=== PATIENT | female | born 1970 | race Caucasian/White ===

== ENCOUNTER 2017-03-18 21:20 | Emergency (ER) | payer OTHER ==
[2017-03-18 21:21] VITALS: BMI 29.2
[2017-03-18] MEDS ORDERED: Alum-Mag Hydrox-Simethicone Susp (30 mL) PO STA (22:21)
[2017-03-18] MEDS ORDERED: Aluminum Hydroxide/Magnesium Hydroxide Susp (30 mL) ONE (22:57)
--- NOTE | 2017-03-18 23:26 | C.PDOC ---
Time Seen by Provider: 03/18/17 22:13 Chief Complaint (Nursing): Abdominal Pain History Per: Patient Onset/Duration Of Symptoms: Hrs Current Symptoms Are (Timing): Still Present Severity: Mild Location Of Pain/Discomfort: Epigastric Radiation Of Pain To:: None Quality Of Discomfort: Unable To Describe, "Pain" Associated Symptoms: Nausea Alleviating Factors: None Additional History Per: Prior Records Past Medical History Reviewed: Historical Data, Nursing Documentation, Vital Signs Vital Signs: Last Vital Signs Temp 98.1 F 03/18/17 21:46 Pulse 71 03/18/17 21:46 Resp 20 03/18/17 21:46 BP 171/97 H 03/18/17 21:46 Pulse Ox 100 03/18/17 21:46 - Medical History PMH: Gastritis, HTN Surgical History: Family History: States: Unknown Family Hx - Social History Hx Tobacco Use: No Hx Alcohol Use: No Hx Substance Use: No - Immunization History Hx Tetanus Toxoid Vaccination: No Hx Influenza Vaccination: No Hx Pneumococcal Vaccination: No Review Of Systems Except As Marked, All Systems Reviewed And Found Negative. Constitutional: Negative for: Fever, Weakness Cardiovascular: Negative for: Chest Pain Respiratory: Negative for: Shortness of Breath Gastrointestinal: Negative for: Vomiting, Diarrhea, Melena, Hematochezia, Hematemesis Genitourinary: Negative for: Dysuria Musculoskeletal: Negative for: Neck Pain, Back Pain, Leg Pain Skin: Negative for: Rash Neurological: Negative for: Weakness, Numbness, Seizures, Altered Mental Status Physical Exam - Physical Exam Appears: Non-toxic, No Acute Distress Skin: Normal Color, Warm, Dry, No Rash Head: Atraumatic, Normacephalic Eye(s): bilateral: Normal Inspection, PERRL, EOMI Neck: Normal ROM, Supple Cardiovascular: Rhythm Regular Respiratory: Normal Breath Sounds, No Accessory Muscle Use Gastrointestinal/Abdominal: Soft, No Tenderness Back: No CVA Tenderness Extremity: Normal ROM, No Pedal Edema, No Calf Tenderness Neurological/Psych: Oriented x3, Normal Motor, Normal Sensation ED Course And Treatment O2 Sat by Pulse Oximetry: 100 Pulse Ox Interpretation: Normal Progress Note: Pt states she ran out of her BP medication. Abdominal pain resolved. Reassessment Condition: Improved Progress - Interventions Interventions:: Observation - Medications Administered Oral: Antacid, Antiemetic, H-2 edie - Data Reviewed Data Reviewed: Old records - Patient Status Patient status: Mostly improved - Continuity of Care Discussed patient case with:: Patient, Family-HIPPA compliant, ED Nurse - Patient Plan Patient Plan: Discharge, F/U with PCP Disposition Counseled Patient/Family Regarding: Diagnosis, Need For Followup, Rx Given - Disposition Referrals: [facility] [Outside] Disposition: HOME/ ROUTINE Disposition Time: 23:26 Condition: IMPROVED Additional Instructions: Follow up in the clinic this week for further evaluation and treatment. Return to the ER if you develop fever, vomiting, chest pain, shortness of breath, worsening of symptoms or if you have any other concerns. Prescriptions: hydroCHLOROthiazide [Microzide] 12.5 mg PO DAILY #30 cap Pantoprazole Sodium [Protonix] 40 mg PO DAILY #14 ect Instructions: Gastritis (ED), Chronic Hypertension (ED) Print Language: BENINESE - Clinical Impression Clinical Impression: Epigastric abdominal pain, Hypertension
[2017-03-18 23:46] VITALS: BP 150/88; PULSE 66; RESP 16; TEMP 98; O2SAT 98
== END 2017-03-18 23:46 | disposition home or self-care (01) ==
LOC: C.ER 21:20
DX: I10 Essential (primary) hypertension (principal); R10.13 Epigastric pain

== ENCOUNTER 2019-01-21 21:46 | Emergency (ER) | payer OTHER | END 2019-01-21 23:10 | disposition home or self-care (01) | LOC: C.ER 21:46 ==